=== PATIENT | female | born 1995 | race Caucasian/White ===

== ENCOUNTER 2018-07-26 20:48 | Inpatient (IN) | payer OTHER ==
[2018-07-26] MEDS ORDERED: Misoprostol 200 MCG TAB PR PRN (21:15)
[2018-07-26] MEDS ORDERED: Carboprost 250 MCG/ML AMP IM PRN (21:15)
[2018-07-26] MEDS ORDERED: Zolpidem Tartrate 5 MG TAB PO PRN (21:15)
[2018-07-26] MEDS ORDERED: Promethazine HCl 25 MG/ML VIAL IM PRN ×2 (21:15→22:20)
[2018-07-26] MEDS ORDERED: HYDROcodone/Acetaminophen 5/325 mg Tablet PO PRN (21:15)
[2018-07-26] MEDS ORDERED: Ondansetron HCl/PF 4 MG/2 ML Vial IVP PRN ×2 (21:15→22:20)
[2018-07-26] MEDS ORDERED: Acetaminophen 500 MG TAB PO PRN (21:15)
[2018-07-26] MEDS ORDERED: Butorphanol Tartrate 1 MG/ML VIAL SLOW IVP PRN (21:15)
[2018-07-26] MEDS ORDERED: Ibuprofen 800 MG TAB PO PRN (21:15)
[2018-07-26] MEDS ORDERED: Lidocaine 1% (PF) 30 ML VIAL SC PRN (21:15)
[2018-07-26 21:33] VITALS: BMI 45.9
[2018-07-26] MEDS: Lactated Ringer's 1,000 ML IV SCH (22:00)
[2018-07-26] MEDS ORDERED: Fentanyl 4 mcg/Bup 0.1% Cadd 100 ML ONE (22:10)
[2018-07-26 22:19] LABS: Hemoglobin 11.8 g/dL (12.0-16.0); Mean Corpuscular HGB CONC 33.2 g/dL (32.0-36.0); Mean Corpuscular Volume 96.4 fL (78.0-98.0); Mean Platelet Volume 8.5 fL (7.4-10.4); Platelet Count 241 thou/uL (130-400); RBC Distribution Width 12.2 % (11.5-14.5); Red Blood Cell (RBC) Count 3.67 mill/uL (4.20-5.40); White Blood Cell (WBC) Count 9.7 thou/uL (4.8-10.8)
[2018-07-26] MEDS ORDERED: ePHEDrine/0.9% NaCl/PF SYRINGE 50 mg/10 ml SLOW IVP PRN (22:20)
[2018-07-26] MEDS ORDERED: Lactated Ringer's 500 ML IV PRN (22:20)
[2018-07-26] MEDS ORDERED: Naloxone HCl 0.4 mg/ml Vial IVP PRN ×2 (22:20)
[2018-07-26] MEDS ORDERED: Eucerin (Mineral Oil/Petrolatum,White) 30 gm Jar TOP PRN (22:20)
[2018-07-26] MEDS ORDERED: diphenhydrAMINE 50 MG/ML VIAL IVP PRN (22:20)
[2018-07-26] MEDS ORDERED: Acetaminophen 325 MG TAB PO PRN (22:20)
[2018-07-26] MEDS ORDERED: Communication Order-Pharmacy FS SCH (22:30)
[2018-07-26 22:58] LABS: Syphilis Antibody Nonreactive (Nonreactive); Syphilis Antibody Index 0.03 S/CO (<1.00 Non-Reactive)
[2018-07-26 22:59] LABS: HBSAg Index 0.19 S/CO (0-0.99); Hep B Surf Ag Non-Reactive S/CO (NonReactive)
[2018-07-26] MEDS ORDERED: Lidocaine 1% PF 5 ML VIAL ONE (23:01)
[2018-07-26] MEDS: Fentanyl 4 mcg/Bupivacaine 0.1% Cassette 100 ML EPIDURAL SCH (23:20)
--- NOTE | 2018-07-26 23:38 | PDOC.EVN ---
Event Note - Event Note Event Note: To room to evaluate FHRA - prolonged decel to 60-70s after epidural placement. BPs in 70s/30s. Given Ephedrine. FSE placed. FHR improved after change in position and ephedrine dose. Continue to monitor.
[2018-07-27] MEDS: NS w/ Oxytocin 10 units 500 ML IV SCH ×2 (02:50→16:08)
[2018-07-27] MEDS ORDERED: Fentanyl 4 mcg/Bup 0.1% Cadd 100 ML ONE ×2 (05:52→14:38)
[2018-07-27] MEDS: Fentanyl 4 mcg/Bupivacaine 0.1% Cassette 100 ML EPIDURAL SCH ×2 (05:55→15:16)
[2018-07-27] MEDS: Misoprostol 100 MCG TAB VAG SCH ×4 (07:22→21:31)
[2018-07-27] MEDS: Lactated Ringer's 1,000 ML IV SCH ×2 (13:00)
[2018-07-27] MEDS ORDERED: Fentanyl 100 MCG/2 ML VIAL ONE (14:11)
[2018-07-27] MEDS: NS / Oxytocin 40 units/1000ml 1,000 ML IV PRN ×2 (18:45→20:34)
[2018-07-27] MEDS ORDERED: traMADol HCl 50 MG TAB PO PRN ×2 (19:18)
[2018-07-27] MEDS ORDERED: Lanolin Ointment 7 GM TUBE TOP PRN (19:18)
[2018-07-27] MEDS ORDERED: Preparation H Ointment 28 GM TUBE PR PRN (19:18)
[2018-07-27] MEDS ORDERED: Benzocaine/Menthol 20-0.5% 60 ML CAN TOP PRN (19:18)
[2018-07-27] MEDS ORDERED: Milk Of Magnesia 30 ML UDCUP PO PRN (19:18)
[2018-07-27] MEDS ORDERED: Bisacodyl 10 MG SUPP PR PRN (19:18)
[2018-07-27] MEDS ORDERED: diphenhydrAMINE 25 MG CAP PO PRN (19:18)
--- NOTE | 2018-07-27 19:20 | PDOC.OPDEL ---
OB Operative/Delivery Note Delivery Dr/Surgeon: Dawn Pre-Delivery Diagnosis: active labor Procedure/Post Delivery Dx: spontaneous vaginal delivery Weeks gestation: 40 Anesthesia: epidural - Findings A Sex: male - 1 min: 8 - 5 min: 9 - Additional Findings/Plan Placenta delivered: spontaneous Repaired Obstetrical Laceration: periurethral
[2018-07-27] MEDS ORDERED: NS / Oxytocin 40 units/1000ml 1,000 ML IV SCH (19:30)
[2018-07-27] MEDS: Ibuprofen 800 MG TAB PO SCH (22:02)
[2018-07-27] MEDS: Docusate Calcium (SURFAK) 240 MG CAP PO SCH (23:14)
[2018-07-28] MEDS: Ibuprofen 800 MG TAB PO SCH ×3 (04:02→21:29)
--- NOTE | 2018-07-28 07:39 | PDOC.PP ---
Post Progress Note Post Day #: 1 PO intake tolerated: yes Flatus: yes Ambulation: yes Vital Signs (12 hours) Temp Pulse Resp BP BP Pulse Ox 07/28/18 04:00 97.6 F 62 18 111/56 L 07/28/18 00:10 97.7 F 60 20 122/59 L 07/27/18 23:10 98.0 F 74 18 135/61 07/27/18 22:10 97.7 F 97 20 140/70 98 Weight Weight 276 lb - Physical Examination Respiratory: clear to auscultation bilaterally, non-labored breathing Abdominal: + bowel sounds, lochia, no distention, appropriately TTP Extremities: negative homans (B) Result Diagrams: 07/26/18 22:00 Additional Labs: Post Labs Blood Type A POSITIVE 07/26/18 22:00 Hep Bs Antigen Non-Reactive S/CO (NonReactive) 07/26/18 22:00 - Assessment/Plan ppd 1--doing well. periurethral laceration-d/c shawna this am. routine care.
[2018-07-28] MEDS: Prenatal Vitamin 1 TAB PO SCH (08:13)
[2018-07-28] MEDS: Ferrous Sulfate 325 MG TAB PO SCH ×2 (08:13→18:08)
[2018-07-28] MEDS: Docusate Calcium (SURFAK) 240 MG CAP PO SCH ×2 (08:14→20:41)
[2018-07-28] MEDS ORDERED: Adacel (T-DAP) 0.5 ML VIAL IM ONE (09:00)
[2018-07-29] MEDS: Ibuprofen 800 MG TAB PO SCH ×2 (06:26→14:03)
--- NOTE | 2018-07-29 07:29 | PDOC.PP ---
Post Progress Note Post Day #: 2 PO intake tolerated: yes Flatus: yes Ambulation: yes Vital Signs (12 hours) Temp Pulse Resp BP Pulse Ox 07/28/18 20:00 97.9 F 82 18 122/58 L 99 Weight Weight 276 lb - Physical Examination Abdominal: + bowel sounds, lochia, no distention, appropriately TTP Extremities: negative homans (B) Result Diagrams: 07/26/18 22:00 Additional Labs: Post Labs Blood Type A POSITIVE 07/26/18 22:00 Hep Bs Antigen Non-Reactive S/CO (NonReactive) 07/26/18 22:00 - Assessment/Plan Doing well post day 2. D/c home. Follow up in 6 weeks.
[2018-07-29 08:34] VITALS: TEMP 98.2
[2018-07-29] MEDS: Prenatal Vitamin 1 TAB PO SCH (09:47)
[2018-07-29] MEDS: Docusate Calcium (SURFAK) 240 MG CAP PO SCH (09:47)
[2018-07-29] MEDS: Ferrous Sulfate 325 MG TAB PO SCH (09:48)
[2018-07-29 12:07] VITALS: BP 133/64
== END 2018-07-29 14:15 | disposition home or self-care (01) | DRG 807 ==
LOC: L&D 20:48 → 3SW 07-27 22:21
PROVIDERS: ADMIT Obstetrics & Gynecology; ATTEND Obstetrics & Gynecology
PROC: 10E0XZZ Delivery of Products of Conception, External Approach (ICD-10-PCS; principal; 2018-07-29)
PROC: 0KQM0ZZ Repair Perineum Muscle, Open Approach (ICD-10-PCS; 2018-07-29)
DX: O70.1 Second degree perineal laceration during delivery (principal); Z37.0 Single live birth; Z3A.40 40 weeks gestation of pregnancy
CPT/HCPCS: 51702; 85027; 86780; 86850; 86900; 86901; 87340; J2001; J2405; J2550; J3010